=== PATIENT | female | born 1945 | race Hispanic/Latino ===

== ENCOUNTER → 2017-02-01 | Day surgery (SDC) | payer OTHER ==
[~2017-02-01] VITALS: Ht 154.9 cm; Wt 60.3 kg
[~2017-02-01] MED LIST: AROMASIN25 MG PO; ASPIRIN 81 MG CHEW TAB PO ONE; ASPIRIN 81 MG ENTERIC COATED PO SCH; BIVALIRUDIN 250 MG/VIAL IV ONE; CLOPIDOGREL BISULFATE 75 MG TAB PO ONE; CLOPIDOGREL BISULFATE 75 MG TAB PO SCH; COMBIVENT INH; CYCLOBENZAPRINE5 MG PO; D-3; DICYCLOMINE HCL20 MG PO; FAMOTIDINE 20 MG TAB PO SCH; FENTANYL CITRATE/PF 100MCG/2 ML INJ ONE; FISH OIL; GLUCOSAMINE1000 MG PO; HEPARIN SOD (PORCINE) 1000 UNIT/ML 30ML ONE; HEPARIN SOD/SOD CHLORIDE 2,000 ML ONE; IBUPROFEN800 MG PO; IMODIUM2 MG PO; IOPAMIDOL 370 MG/ML 200 ML INFUS..BTL INJ ONE; IRBESARTAN; LIDOCAINE HCL 2% LOCAL 20 ML VIAL ONE; LOSARTAN POTASS25 MG PO; MECLIZINE HCL12.5 MG PO; METOPROLOL TARTRATE 25 MG TAB PO SCH; MIDAZOLAM HCL 2 MG/2 ML VIAL ONE; MORPHINE SULFATE 2 MG/ML SYR IV PRN; MORPHINE SULFATE 2 MG/ML SYR IV STA; NITROGLYCERIN 0.4 MG SUBL SL PRN; NITROGLYCERIN/D5W 200 MCG/ML 250 ML IV STA; NITROGLYCERIN/D5W 200 MCG/ML 250 ML ONE; ONDANSETRON HCL INJ 2 MG/ML VIAL ONE; PHAZYME180 MG PO; PRADAXA150 MG PO; SODIUM CHLORIDE 0.9% 1000ML 1,000 ML ONE; SODIUM CHLORIDE 0.9% 50ML 0 ML ONE; VALACYCLOVIR1000 MG PO; Z.0.ANASTROZOLE1 MG PO; Z.0.ANTIVERT25 MG PO; Z.0.ASPIRIN CHEW81 M PO; Z.0.BENICAR40 MG PO; Z.0.ESIDRIX25 MG PO; Z.0.LOPRESSOR100 MG PO; Z.0.NORCO 5-325 TA1 PO; Z.0.PHENERGAN25 M1 PO; Z.0.PREDNISONE20 MG PO; Z.0.SIMVASTATIN20 MG PO; Z.0.ZOFRAN4 MG PO; Z.1.ALBUTEROL2.5 MG/ INH; [UNRECOGNIZED DRUG - CODE] PO; [UNRECOGNIZED DRUG - OTHER] PO
[2017-02-01] MEDS: METOPROLOL TARTRATE INJ 1 MG/ML VIAL IV SCH ×3 (22:17→22:32)
[2017-02-01 22:28] LABS: BASOPHILS # (AUTO) 0.1 (0.0-0.1); BASOPHILS % 0.7 % (0.0-1.0); EOSINOPHILS # (AUTO) 0.2 (0.0-0.4); EOSINOPHILS % 1.6 % (0.0-6.0); HEMOGLOBIN 13.9 g/dL (12.0-16.0); LYMPHOCYTES # (AUTO) 4.1 (1.0-3.2); LYMPHOCYTES % 37.3 % (18.0-39.1); MEAN CORPUSCULAR HEMOGLOBIN 28.3 pg (28-32); MEAN CORPUSCULAR HGB CONC 33.9 g/dL (31-35); MEAN CORPUSCULAR VOLUME 83.5 fL (81-99); MONOCYTES # (AUTO) 1.1 (0.2-0.8); MONOCYTES % 10.3 % (4.4-11.3); NEUTROPHILS # (AUTO) 5.5 (2.1-6.9); NEUTROPHILS % 49.8 % (38.7-80.0); PLATELET COUNT 314 x10e3/uL (140-360); RED BLOOD COUNT 4.91 x10e6/uL (3.6-5.1); RED CELL DISTRIBUTION WIDTH 13.7 % (11.7-14.4)
[2017-02-01 22:37] LABS: INR 0.84; PROTHROMBIN TIME 11.9 seconds (11.9-14.5)
[2017-02-01 22:38] LABS: PARTIAL THROMBOPLASTIN TIME 29.8 seconds (23.8-35.5)
--- NOTE | 2017-02-01 22:40 | Diagnostic Imaging Report ---
CHEST SINGLE (PORTABLE), 02/01/2017 10:00 PM Technique: CHEST SINGLE (PORTABLE) Comparison: 10/08/2016 Clinical history: Chest pain Findings: Stable appearance of the heart, mediastinum, lungs and pleural spaces. Unchanged left lower lobe calcified granuloma. Clips are seen overlying the right chest and upper abdomen. Impression: 1. Lines/Tubes: None 2. No acute abnormality. Signed by: Dr Fay Faust MD on 02/01/2017 10:37 PM
[2017-02-01 22:47] LABS: ALANINE AMINOTRANSFERASE 19 IU/L (0-55); ALBUMIN 4.1 g/dL (3.5-5.0); ALBUMIN/GLOBULIN RATIO 0.9 (0.8-2.0); ALKALINE PHOSPHATASE 83 IU/L (40-150); ANION GAP 14.9 mmol/L (8-16); BLOOD UREA NITROGEN 12 mg/dL (7-26); BUN/CREATININE RATIO 15 (6-25); CARBON DIOXIDE 22 mmol/L (22-29); CHLORIDE 102 mmol/L (98-107); CREATINE KINASE 34 IU/L (29-168); EST GLOMERULAR FILTRATION RATE > 60 ML/MIN (60-); GLUCOSE 102 mg/dL (74-118); SODIUM 136 mmol/L (136-145)
[2017-02-01 22:51] LABS: POTASSIUM 2.9 mmol/L (3.5-5.1)
[2017-02-01 22:53] LABS: TROPONIN I 0.382 ng/mL (0-0.300)
--- NOTE | 2017-02-02 09:46 | History and Physical ---
REASON FOR ADMISSION: Anterior ST elevation myocardial infarction. HISTORY OF PRESENT ILLNESS: Ms. Merrill is a 71-year-old woman with history of hypertension, asthma, meningioma status post surgery over 1 month prior and right breast mastectomy for right-sided breast cancer status post hormonal therapy. Patient denies prior radiation therapy of the chest. She presents to [facility] with stabbing chest pain ongoing for the preceding 5 days, worsening with exertion, was seen at emergency department in [place] and was advised to follow up as outpatient. At that time, CT chest was reportedly done. Review of records also showed passage of temporal arteritis as well as paroxysmal atrial fibrillation. In the emergency department, she was noted to have active chest discomfort following initiation of beta estee and nitroglycerin. Her symptoms improved with chest pain resolving. electroplating laborer was activated for primary angiography and possible intervention. REVIEW OF SYSTEMS: A 12-system review is negative except for as noted above. ALLERGIES: NO KNOWN DRUG ALLERGIES. PAST MEDICAL HISTORY: As per HPI. SOCIAL HISTORY: No smoking, alcohol or drugs. FAMILY HISTORY: Noncontributory. PHYSICAL EXAMINATION VITAL SIGNS: Temperature of 98.7, initial blood pressure 230/115, respiratory rate 18, heart rate 95, O2 sat 98% on room air. GENERAL: No acute distress. Alert. NECK: No JVD. CHEST: Clear to auscultation. CARDIOVASCULAR: Regular rate and rhythm, normal S1 and S2. No S3 or S4. 1/6 systolic ejection murmur. ABDOMEN: Soft. EXTREMITIES: No edema. Warm distal extremities. CARDIOVASCULAR MEDICATIONS: In the emergency department, she was given metoprolol 5 mg, a total of 3 doses; aspirin 81 mg and clopidogrel 600 mg was also administered. Additional metoprolol tartrate 25 mg was administered in the medical laboratory technical officer. Her most recent blood pressure is now in the 150s/80s. Currently, chest pain reportedly at 0/10. EKG with inferior ST elevations and ST depressions noted in V2 consistent with inferior-posterior ST elevation ME EKG pattern. Chest x-ray with no acute abnormality or overlying the right chest and upper abdomen. ASSESSMENT 1. Inferior and posterior ST elevation myocardial infarction in the setting of hypertensive emergency. 2. Multivessel severe coronary artery disease, please see catheterization laboratory report. 3. Asthma. 4. Status post right breast biopsy for breast cancer, status post hormonal therapy. Denies prior radiation therapy to the chest. 5. Status post meningioma resection at [facility]. RECOMMENDATIONS 1. Expedite the transfer to [facility] for higher level of care. Discussed case with Dr. Yu who accepts the patient at transfer. 2. Continue to optimize blood pressure control including beta estee therapy for antianginal effect. 3. Continue aspirin. 4. Discontinue Plavix and statin therapy after hemostasis achieved. 5. Consider resuming Heparin IV, nitroglycerin as needed for blood pressure control. 6. Echocardiogram and carotid ultrasound also to be done, however, will defer to post transfer to [facility]. Job#: [id number]
--- NOTE | 2017-02-02 11:39 | Operative Report ---
DATE OF PROCEDURE: February 01, 2017 CARDIAC CATHETERIZATION PROCEDURE INDICATIONS: Inferior and posterior ST-elevation myocardial infarction in the setting of hypertensive emergency. PROCEDURES PERFORMED 1. Left heart catheterization. 2. Selective coronary angiography times 2. 3. Manual pressure hemostasis. PROCEDURE COMPLICATIONS: None. ESTIMATED BLOOD LOSS: Less than 15 mL. PROCEDURE SUMMARY: After consent was obtained, the patient was prepped and draped and brought emergently to the equipment operator/laborer/supervisor for angiography and possible primary intervention. Of note, patient came into the emergency department with complaints of chest discomfort, however, chest pain resolved after initiation of beta estee therapy, nitroglycerin. Her blood pressure on admission was 230/118. Initial EKG shows inferior and posterior ST elevations. laborer cement gun placing telemetry, ST elevation seemed to have resolved. Currently, chest pain is 0/10 throughout the procedure including at the end of the procedure. Access was obtained with micropuncture kit and a 6-Kazakh sheath was placed to the right common femoral artery. Lidocaine was used for local anesthetic. Fentanyl was used for sedation. JL3.5 6-Kazakh guide catheter and a JR4 guide catheter were used for selective angiography of the left main and the right coronary artery respectively. Nitroglycerin was administered via the JL4 catheter when the right coronary artery was engaged and additional nonselective shots of her right coronary artery ostium were performed to exclude significant ostial culprit lesion. Hemodynamic measurements across the aortic valve were obtained via the JR4 catheter. The following findings were noted. 1. LV pressure was 164/2 with end-diastolic pressure of 11. 2. Aortic pressure was 163/78. 3. Left main seems diffusely diseased particularly in the mid to distal segment, 40% to 50% stenosis. It gives LAD and circumflex. 4. The LAD in the proximal portion has approximately 30% after 1st sets of telephonic nurse case manager. The LAD has 60% stenosis prior to giving the 1st diagonal. The 1st diagonal itself has 60% proximal and ostial stenosis. Distal to the 1st diagonal, the distal LAD has 70% tubular stenosis. Additional separate focal 40% stenosis of the apical LAD is observed. 5. The circumflex has 50% and 60% tandem lesions in the mid portion and gives 3 obtuse marginals in a trifurcation anatomy with the middle or 2nd obtuse marginal of the trifurcation having a 95% tubular area of stenosis. This was felt to be the likely culprit for her consequent dynamic EKG changes in the setting of hypertensive emergency. There is RADHA 3 flow across all coronary vessels at this point. 6. The right coronary artery is dominant. Proximally, there is 50% tubular stenosis. In the mid portion, there is 50% tubular stenosis following the 1st RV marginal. Additional distal 40% focal stenosis of the RCA is noted. The RPDA has luminal irregularities. The RPLV has ostial 50% focal stenosis. Both are small in caliber. CONCLUSION 1. Multivessel coronary artery disease with critical stenosis of the 2nd obtuse marginal with complex trifurcation anatomy. 2. Stenosis at the ostium of the 2nd obtuse marginal. 3. Erijtcpj-[id number] stenosis of left main. 4. Severe stenosis of left anterior descending and moderate stenosis of mid circumflex as well as the right coronary artery. RECOMMENDATIONS 1. Given complex anatomy, evaluation by CV surgery for possible aortocoronary bypass has been initiated. 2. Patient will be transferred for higher level of care. 3. Discontinue Plavix. 4. Continue aspirin. 5. Continue statin. 6. I will titrate antihypertensives as needed, nitroglycerin as needed, beta estee therapy. 7. Repeat EKG as patient is currently chest pain free. I have discussed these with CV surgery in [facility]. CV surgery accepting transfer. Job#: [id number] MALIK
== END | disposition short-term general hospital (02) ==
LOC: ER 21:47 → CATH LAB 22:43
PROVIDERS: ATTEND Internal Medicine
DX: I25.10 Atherosclerotic heart disease of native coronary artery without angina pectoris (principal); I10 Essential (primary) hypertension; J45.909 Unspecified asthma, uncomplicated; M32.9 Systemic lupus erythematosus, unspecified; Z90.11 Acquired absence of right breast and nipple; Z85.3 Personal history of malignant neoplasm of breast; Z85.841 Personal history of malignant neoplasm of brain
CPT/HCPCS: 36415; 71010; 80053; 82550; 82553; 83880; 84484; 85025; 85610; 85730; 93005 ×2; 93458; 99284; C1769; J0583; J1644; J2001; J2250; J2270; J7030; Q9967

== ENCOUNTER → 2017-02-18 | Outpatient (CLI) | payer OTHER ==
[~2017-02-18] MED LIST changes: -ASPIRIN 81 MG CHEW TAB PO ONE; -ASPIRIN 81 MG ENTERIC COATED PO SCH; -BIVALIRUDIN 250 MG/VIAL IV ONE; -CLOPIDOGREL BISULFATE 75 MG TAB PO ONE; -CLOPIDOGREL BISULFATE 75 MG TAB PO SCH; -FAMOTIDINE 20 MG TAB PO SCH; -FENTANYL CITRATE/PF 100MCG/2 ML INJ ONE; -HEPARIN SOD (PORCINE) 1000 UNIT/ML 30ML ONE; -HEPARIN SOD/SOD CHLORIDE 2,000 ML ONE; -IOPAMIDOL 370 MG/ML 200 ML INFUS..BTL INJ ONE; -LIDOCAINE HCL 2% LOCAL 20 ML VIAL ONE; -METOPROLOL TARTRATE 25 MG TAB PO SCH; -MIDAZOLAM HCL 2 MG/2 ML VIAL ONE; -MORPHINE SULFATE 2 MG/ML SYR IV PRN; -MORPHINE SULFATE 2 MG/ML SYR IV STA; -NITROGLYCERIN 0.4 MG SUBL SL PRN; -NITROGLYCERIN/D5W 200 MCG/ML 250 ML IV STA; -NITROGLYCERIN/D5W 200 MCG/ML 250 ML ONE; -ONDANSETRON HCL INJ 2 MG/ML VIAL ONE; -SODIUM CHLORIDE 0.9% 1000ML 1,000 ML ONE; -SODIUM CHLORIDE 0.9% 50ML 0 ML ONE
--- NOTE | 2017-02-18 16:38 | Diagnostic Imaging Report ---
PROCEDURE: Frontal and lateral views of the chest. COMPARISON: Chest x-ray 02/01/2017. INDICATIONS: SHORT OF BREATH FINDINGS: Lines/tubes: Median sternotomy wires and mediastinal clips remain intact. Lungs: The lungs are well inflated. New bilateral peribronchial cuffing especially the left midlung. Calcified granulomas bilaterally especially the left lung base is unchanged. There is no evidence of pneumonia or pulmonary edema. Pleura: There is no pleural effusion or pneumothorax. Heart and mediastinum: The heart and the mediastinum are normal. Bones: No acute bony abnormality. Right axillary surgical clips are unchanged. IMPRESSION: New bilateral peribronchial cuffing, likely viral etiology or reactive airway. Dictated by: Wiley Pascal M.D. on 02/18/2017 at 16:47 Electronically approved by: Wiley Pascal M.D. on 02/18/2017 at 16:47
== END ==
LOC: RAD 16:05
PROVIDERS: ATTEND Internal Medicine
DX: R06.02 Shortness of breath (principal)
CPT/HCPCS: 71020

== ENCOUNTER → 2017-03-11 | Outpatient (CLI) | payer OTHER ==
--- NOTE | 2017-03-11 19:21 | Diagnostic Imaging Report ---
PROCEDURE:EXTREMITY ULTRASOUND COMPARISON:None. INDICATIONS:LEFT LEG SWELLING TECHNIQUE:Ultrasound evaluation analysis of the medial left leg near area of incision was performed utilizing grayscale and color upper modalities, in transverse and longitudinal plane FINDINGS: There is an approximately 3.6 x 2.1 x 3.1 cm lobulated, predominantly hypoechoic/anechoic structure in the subcutaneous tissues, with several linear internal echoes. No calcification or increased vascularity. Generalized subcutaneous tissue edema is noted. No other fluid collections are identified. CONCLUSION: 1. Finding likely represents a hematoma. 2. Subcutaneous edema. Jose Mitchell M.D. Dictated by: Jose Mitchell M.D. on 03/11/2017 at 19:31 Electronically approved by: Jose Mitchell M.D. on 03/11/2017 at 19:31
== END ==
LOC: US 11:30
PROVIDERS: ATTEND Internal Medicine
DX: M79.89 Other specified soft tissue disorders (principal)
CPT/HCPCS: 76882

== ENCOUNTER → 2017-11-04 | Outpatient (CLI) | payer OTHER ==
--- NOTE | 2017-11-04 16:07 | Diagnostic Imaging Report ---
Exam: Bone mineral density study. History: Age-related osteoporosis Comparison: None Discussion: Evaluation of the left hip and lumbar spine was performed. The study is technically adequate. The patient's fracture risk is compared to an age-matched control. The patient denies prior surgery/fracture of the spine, hips or forearm. Left hip femoral neck bone mineral density: 0.7 g/cm2, T-score is -1.4, Z-score is 0.5. Left hip total bone mineral density: 0.8 g/cm2, T-score is -0.9, Z-score is 0.7. Lumbar spine total bone mineral density: 0.9 g/cm2, T-score is -1.4, Z-score is 0.8. Impression: Bone mineralization by WHO Classification is low bone mass/osteopenia, the fracture risk is increased. Signed by: Dr. Margarito Dickinson D.O., M.M.M. on 11/04/2017 4:03 PM
== END ==
LOC: DX 15:03
PROVIDERS: ATTEND Internal Medicine
DX: M81.0 Age-related osteoporosis without current pathological fracture (principal)
CPT/HCPCS: 77080

== ENCOUNTER → 2018-02-01 | Outpatient (CLI) | payer OTHER | LOC: DX 16:32 | PROVIDERS: ATTEND Internal Medicine | DX: M81.0 Age-related osteoporosis without current pathological fracture (principal) ==

== ENCOUNTER 2020-09-12 13:38 | Observation (INO) | payer MEDICARE, OTHER ==
[~2020-09-12] VITALS: Ht 149.9 cm; Wt 59.0 kg
[2020-09-12 14:21] LABS: BASOPHILS % 0.4 % (0.0-1.0); EOSINOPHILS # (AUTO) 0.2 (0.0-0.4); EOSINOPHILS % 2.8 % (0.0-6.0); HEMATOCRIT 43.4 % (34.2-44.1); HEMOGLOBIN 13.8 g/dL (12.0-16.0); LYMPHOCYTES % 26.3 % (18.0-39.1); MEAN CORPUSCULAR HEMOGLOBIN 28.3 pg (28-32); MEAN CORPUSCULAR HGB CONC 31.8 g/dL (31-35); MEAN CORPUSCULAR VOLUME 88.9 fL (81-99); MONOCYTES # (AUTO) 0.9 (0.2-0.8); MONOCYTES % 11.6 % (4.4-11.3); NEUTROPHILS # (AUTO) 4.5 (2.1-6.9); NEUTROPHILS % 58.5 % (38.7-80.0); PLATELET COUNT 256 x10e3/uL (140-360); RED BLOOD COUNT 4.88 x10e6/uL (3.6-5.1); RED CELL DISTRIBUTION WIDTH 13.8 % (11.7-14.4)
[2020-09-12 14:39] LABS: ALBUMIN 3.6 g/dL (3.5-5.0); ALBUMIN/GLOBULIN RATIO 0.9 (0.8-2.0); ANION GAP 15.5 mmol/L (8-16); CALCIUM 10.8 mg/dL (8.4-10.2); CREATININE, SERUM 0.87 mg/dL (0.57-1.11); POTASSIUM 3.5 mmol/L (3.5-5.1)
[2020-09-12] MEDS ORDERED: ASPIRIN 81 MG CHEW TAB PO ONE (17:30)
[2020-09-12] MEDS ORDERED: CYCLOBENZAPRINE HCL 10 MG TAB PO PRN (18:00)
[2020-09-12] MEDS ORDERED: HYDRALAZINE HCL 20 MG/ML VIAL IV PRN (18:00)
[2020-09-12 19:32] LABS: CREATINE KINASE 22 IU/L (29-168)
[2020-09-12] MEDS ORDERED: ATORVASTATIN 20 MG TAB PO SCH (21:00)
[2020-09-13] MEDS ORDERED: ALPRAZOLAM 0.5 MG TAB PO ONE (00:45)
[2020-09-13] MEDS ORDERED: ONDANSETRON HCL INJ 2MG/ML 2ML 2 MG/ML VIAL IV PRN (00:45)
[2020-09-13 06:00] LABS: BASOPHILS % 0.6 % (0.0-1.0); EOSINOPHILS # (AUTO) 0.2 (0.0-0.4); HEMATOCRIT 42.6 % (34.2-44.1); HEMOGLOBIN 13.7 g/dL (12.0-16.0); LYMPHOCYTES % 28.1 % (18.0-39.1); MEAN CORPUSCULAR HEMOGLOBIN 28.7 pg (28-32); MEAN CORPUSCULAR HGB CONC 32.2 g/dL (31-35); MEAN CORPUSCULAR VOLUME 89.3 fL (81-99); MONOCYTES % 13.9 % (4.4-11.3); NEUTROPHILS # (AUTO) 3.9 (2.1-6.9); PLATELET COUNT 254 x10e3/uL (140-360); RED BLOOD COUNT 4.77 x10e6/uL (3.6-5.1); RED CELL DISTRIBUTION WIDTH 13.9 % (11.7-14.4)
[2020-09-13 06:36] LABS: ANION GAP 11.4 mmol/L (8-16); CALCIUM 9.7 mg/dL (8.4-10.2); CREATININE, SERUM 0.85 mg/dL (0.57-1.11)
[2020-09-13 06:44] LABS: POTASSIUM 4.4 mmol/L (3.5-5.1)
[2020-09-13 06:47] LABS: CREATINE KINASE MB 0.4 ng/mL (0-5.0)
[2020-09-13 06:57] LABS: THYROID STIMULATING HORMONE 2.737 uIU/mL (0.350-4.940)
[2020-09-13 06:59] LABS: CHOL/HDL RATIO 2.3 (3.0-3.6)
[2020-09-13] MEDS ORDERED: MECLIZINE HCL 12.5 MG TAB PO SCH (09:00)
[2020-09-13] MEDS ORDERED: LOSARTAN POTASSIUM 25 MG TAB PO SCH (09:00)
[2020-09-13] MEDS ORDERED: ASPIRIN 81 MG CHEW TAB PO SCH (09:00)
[2020-09-13] MEDS ORDERED: MECLIZINE HCL 12.5 MG TAB PO PRN (10:15)
[2020-09-13 11:18] LABS: CREATINE KINASE MB 0.4 ng/mL (0-5.0)
== END 2020-09-13 13:01 | disposition home or self-care (01) ==
LOC: ER 14:03 → ERHOLD 14:05
PROVIDERS: ADMIT Internal Medicine; ATTEND Internal Medicine
DX: R42 Dizziness and giddiness (principal); I10 Essential (primary) hypertension; E78.5 Hyperlipidemia, unspecified; I48.20 Chronic atrial fibrillation, unspecified; Z79.01 Long term (current) use of anticoagulants; Z85.3 Personal history of malignant neoplasm of breast; Z95.1 Presence of aortocoronary bypass graft; Z20.822 Contact with and (suspected) exposure to COVID-19
CPT/HCPCS: 36415 ×2; 70450; 71045; 80048; 80053; 80061; 82550 ×2; 82553 ×2; 83036; 83880; 84443; 84484 ×2; 85025 ×2; 93005; 93306; 99284; G0378 ×2; J0360; J2405; J8597; U0002

== ENCOUNTER 2021-12-18 18:25 | Emergency (ER) | payer MEDICARE ==
[~2021-12-18] VITALS: Ht 149.9 cm; Wt 59.0 kg
[2021-12-18] MEDS ORDERED: ACETAMINOPHEN 325 MG TAB PO ONE (19:15)
[2021-12-18 19:29] LABS: STREPTOCOCCUS GRP A ANTIGEN NEGATIVE (NEGATIVE)
[2021-12-18 19:37] LABS: INFLUENZAE A&B ANTIGEN (RAPID) POSITIVE FLU A (NEGATIVE)
[2021-12-18 20:22] VITALS: BP 120/68
== END 2021-12-18 20:26 | disposition home or self-care (01) ==
LOC: ER 18:43
DX: R50.9 Fever, unspecified (principal); J10.1 Influenza due to other identified influenza virus with other respiratory manifestations; R05.9 Cough, unspecified; I10 Essential (primary) hypertension; E78.5 Hyperlipidemia, unspecified; M32.9 Systemic lupus erythematosus, unspecified; Z20.822 Contact with and (suspected) exposure to COVID-19; Z95.1 Presence of aortocoronary bypass graft; Z85.3 Personal history of malignant neoplasm of breast
CPT/HCPCS: 83518; 87070; 87400; 99282; U0002

== ENCOUNTER 2023-08-31 08:52 | Emergency (ER) | payer MEDICARE ==
[~2023-08-31] VITALS: Ht 180.3 cm; Wt 49.4 kg
[~2023-08-31 08:52] MED LIST changes: +ASCORBIC ACID500 M2 PO; +ASPIRIN81 MG PO; +ATIVAN0.5 MG PO; +ATORVASTATIN CA20 MG PO; +DOCUSATE SODIU100 MG PO; +FERROUS SULFAT325 MG PO; +HYDROCODON-ACE1 EAC9 PO; +PANTOPRAZOLE SO40 MG PO; +PREDNISONE50 MG PO; +ULTRAM 50MG50 MG PO
[2023-08-31 08:57] VITALS: TEMP 97.6
[2023-08-31] MEDS ORDERED: SODIUM CHLORIDE FLUSH 10 ML SYR IV PRN (09:15)
[2023-08-31 09:26] LABS: BASOPHILS # (AUTO) 0.1 (0.0-0.1); BASOPHILS % 0.8 % (0.0-1.0); EOSINOPHILS # (AUTO) 0.2 (0.0-0.4); EOSINOPHILS % 2.5 % (0.0-6.0); HEMATOCRIT 37.8 % (34.2-44.1); HEMOGLOBIN 12.2 g/dL (12.0-16.0); LYMPHOCYTES # (AUTO) 2.3 (1.0-3.2); LYMPHOCYTES % 28.7 % (18.0-39.1); MEAN CORPUSCULAR HEMOGLOBIN 29.7 pg (28-32); MEAN CORPUSCULAR HGB CONC 32.3 g/dL (31-35); MONOCYTES # (AUTO) 0.8 (0.2-0.8); MONOCYTES % 10.5 % (4.4-11.3); NEUTROPHILS # (AUTO) 4.6 (2.1-6.9); NEUTROPHILS % 57.2 % (38.7-80.0); PLATELET COUNT 284 x10e3/uL (140-360); RED BLOOD COUNT 4.11 x10e6/uL (3.6-5.1); RED CELL DISTRIBUTION WIDTH 13.2 % (11.7-14.4); WHITE BLOOD COUNT 7.98 x10e3/uL (4.8-10.8)
[2023-08-31 09:36] LABS: INR 0.92
[2023-08-31 09:37] LABS: PARTIAL THROMBOPLASTIN TIME 28.2 seconds (23.8-35.5)
[2023-08-31] MEDS: MECLIZINE HCL 12.5 MG TAB PO ONE (09:42)
[2023-08-31 09:46] LABS: ALBUMIN 3.6 g/dL (3.5-5.0); ALBUMIN/GLOBULIN RATIO 0.9 (0.8-2.0); ANION GAP 13.7 mmol/L (8-16); CALCIUM 9.6 mg/dL (8.4-10.2); CREATININE, SERUM 0.84 mg/dL (0.57-1.11); POTASSIUM 3.7 mmol/L (3.5-5.1); TOTAL PROTEIN 7.7 g/dL (6.5-8.1)
[2023-08-31 09:53] LABS: TROPONIN I 0.034 ng/mL (0-0.300)
[2023-08-31 09:59] LABS: BILIRUBIN,TOTAL 0.5 mg/dL (0.2-1.2)
[2023-08-31 10:42] LABS: BILIRUBIN,URINE NEGATIVE (NEGATIVE); CLARITY,URINE CLEAR (CLEAR); COLOR,URINE YELLOW (YELLOW); GLUCOSE, URINE NEGATIVE (NEGATIVE); KETONES,URINE NEGATIVE (NEGATIVE); LEUKOCYTE ESTERASE ,URINE SMALL (NEGATIVE); NITRITE,URINE NEGATIVE (NEGATIVE); PH,URINE 5.5 (5 - 7); PROTEIN,URINE DIPSTICK NEGATIVE (NEGATIVE); URINE UROBILINOGEN 0.2 mg/dL (0.2 - 1)
[2023-08-31 10:52] LABS: BACTERIA,URINE FEW /HPF; EPITHELIAL CELLS,URINE MODERATE /LPF; RBC,URINE 0-5 /HPF (0-5)
[2023-08-31 11:14] VITALS: PULSE 75; RESP 17; O2SAT 100
[2023-08-31] MEDS ORDERED: MECLIZINE HCL25 MG PO (11:18)
[2023-08-31] MEDS ORDERED: CEPHALEXIN500 MG PO (11:18)
== END 2023-08-31 11:31 | disposition home or self-care (01) ==
LOC: ER 09:02
DX: R42 Dizziness and giddiness (principal); N39.0 Urinary tract infection, site not specified; R11.2 Nausea with vomiting, unspecified; R53.1 Weakness; I10 Essential (primary) hypertension; E78.5 Hyperlipidemia, unspecified; I25.10 Atherosclerotic heart disease of native coronary artery without angina pectoris; Z95.1 Presence of aortocoronary bypass graft; J45.909 Unspecified asthma, uncomplicated; M32.9 Systemic lupus erythematosus, unspecified; Z79.899 Other long term (current) drug therapy; Z79.82 Long term (current) use of aspirin; Z79.52 Long term (current) use of systemic steroids
CPT/HCPCS: 36415; 70450; 71045; 80053; 81001; 83880; 84484; 85025; 85610; 85730; 93005; 99284; J8597